=== PATIENT | female | born 1940 | race Caucasian/White ===

== ENCOUNTER → 2017-01-10 | Emergency (ER) | payer MEDICARE ==
[~2017-01-10] VITALS: Ht 157.5 cm; Wt 92.0 kg
[~2017-01-10] MED LIST: BELLADONNA/PHENOBARBITAL ELIXIR (DONNATAL) 10 ML UDC ONE; GI COCKTAIL 55 ML UDC PO ONE; LIDOCAINE 2% VISCOUS 20ML UDC PO ONE; MAG HYDROX/AL HYDROX/SIMETH 400-400-40/5 ML (MAG-AL PLUS XS) 30 ML UDC ONE
[2017-01-10 17:18] LABS: BASOPHILS % (AUTO) 0 % (0-2); EOSINOPHILS % (AUTO) 0 % (0-4); LYMPHOCYTES # (AUTO) 1.7 X10^3; MEAN CORPUSCULAR HGB CONC 33.7 g/dL (31.0-37.0); MEAN CORPUSCULAR VOLUME 94 FL (80-100); MEAN PLATELET VOLUME 10.6 FL (6.0-9.5); MONOCYTES # (AUTO) 0.6 X10^3; MONOCYTES % (AUTO) 9 % (3-11); NEUTROPHILS # (AUTO) 4.3 X10^3; NEUTROPHILS % (AUTO) 65 % (51-67); PLATELET COUNT 130 10^3uL (150-450); WHITE BLOOD COUNT 6.59 10^3uL (4.0-11.0)
[2017-01-10 17:28] LABS: ALBUMIN 3.7 g/dL (3.4-5.0); ANION GAP 11.9 MEQ/L (3-15); CALCULATED IONIZED CALCIUM 4.2 mg/dL (3.8-4.6); TOTAL PROTEIN 6.8 g/dL (6.4-8.5)
[2017-01-10 17:31] LABS: BILIRUBIN,URINE Negative (Negative); COLOR,URINE Yellow; GLUCOSE, URINE (UA) Negative (Negative); LEUKOCYTE ESTERASE ,URINE Negative (Negative); UROBILINOGEN,URINE 0.2 mg/dL (0.2-1.0)
[2017-01-10 17:32] LABS: CLARITY,URINE Slightly Cloudy
[2017-01-10 17:38] LABS: MEAN CORPUSCULAR HEMOGLOBIN 31.6 PG (26.0-34.0)
[2017-01-10 17:55] LABS: URINE CENTRIFUGED VOLUME 12 mL
[2017-01-10 19:07] VITALS: BP 136/72
== END | disposition home or self-care (01) ==
LOC: ED 15:30
DX: R55 Syncope and collapse (principal); K21.9 Gastro-esophageal reflux disease without esophagitis
CPT/HCPCS: 36415; 80053; 81003; 81015; 82150; 83690; 84443; 85025; 86140; 99282; A9270